=== PATIENT | male | born 1975 | race Caucasian/White ===

== ENCOUNTER 2024-04-06 09:26 | Emergency (ER) | payer SELFPAY ==
[~2024-04-06] VITALS: Ht 185.4 cm; Wt 104.5 kg
[2024-04-06 09:30] VITALS: TEMP 98.9
[2024-04-06] MEDS: ACETAMINOPHEN 500 MG TABLET PO ONE (10:15)
[2024-04-06] MEDS: DOXYCYCLINE HYCLATE 100 MG TABLET PO ONE (10:16)
[2024-04-06] MEDS: IBUPROFEN 600 MG TABLET PO ONE (10:16)
[2024-04-06] MEDS: LIDOCAINE 1% 10 ML VIAL SQ ONE (10:16)
[2024-04-06] MEDS: CEPHALEXIN MONOHYDRATE 500 MG CAPSULE PO ONE (10:16)
[2024-04-06] MEDS ORDERED: IBUP-1554 PO (11:30)
[2024-04-06] MEDS ORDERED: ACET-2080 PO (11:30)
[2024-04-06] MEDS ORDERED: CEPH-558 PO (11:30)
[2024-04-06] MEDS ORDERED: DOXY-354 PO (11:30)
[2024-04-06 11:41] VITALS: BP 169/85; PULSE 89; RESP 18; O2SAT 99
== END 2024-04-06 11:42 | disposition home or self-care (01) ==
LOC: EMS 09:29
DX: L72.3 Sebaceous cyst (principal)
CPT/HCPCS: 99284; 10060; J3490

== ENCOUNTER 2024-04-08 08:20 | Emergency (ER) | payer SELFPAY ==
[~2024-04-08] VITALS: Ht 185.4 cm; Wt 106.8 kg
[~2024-04-08 08:20] MED LIST: ACET-2080 PO; CEPH-558 PO; DOXY-354 PO; IBUP-1554 PO
[2024-04-08 08:26] VITALS: BP 131/89; PULSE 87; RESP 18; TEMP 98.4; O2SAT 98
== END 2024-04-08 10:23 | disposition home or self-care (01) ==
LOC: EMS 08:26
DX: L72.3 Sebaceous cyst (principal); L08.9 Local infection of the skin and subcutaneous tissue, unspecified; Z48.00 Encounter for change or removal of nonsurgical wound dressing
CPT/HCPCS: 10060; 99282; Z7502

== ENCOUNTER 2024-04-11 07:11 | Emergency (ER) | payer SELFPAY ==
[~2024-04-11] VITALS: Ht 185.4 cm; Wt 105.5 kg
[2024-04-11 07:20] VITALS: TEMP 98.2
[2024-04-11 10:17] VITALS: BP 141/85; PULSE 75; RESP 18; O2SAT 98
== END 2024-04-11 10:24 | disposition home or self-care (01) ==
LOC: EMS 07:11
DX: L02.212 Cutaneous abscess of back [any part, except buttock and flank] (principal); Z48.00 Encounter for change or removal of nonsurgical wound dressing
CPT/HCPCS: 99281; Z7502